=== PATIENT | male | born 1990 | race Caucasian/White ===

== ENCOUNTER → 2019-07-17 15:15 | Outpatient (CLI) | payer SELFPAY ==
--- NOTE | 2019-07-17 | TISS_PTH ---
PATIENT: LINCOLN ZUNIGA LOC: [facility] U#:[id number] AGE/SX: 34/M ROOM: RE07/17/[address]: Dr. Kalpesh Allen MD : 1990 BED: DIS: SPEC #: [id number] RECD: 07/17/19 15:01 STATUS: ARGENTINA SALBADOR #: [id number] CON: 07/17/19 00:[address]: Kalpesh Allen DEPT: SURGICAL PATHOLOGY RECD BY: Aaron Nice ENTERED: 07/20/19 08:34 SP TYPE: Tissue Bx GONZALO DR: Dr. 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 Negative for malignancy. SJ:marcial 07/21/19 COMMENT Case has been reviewed in consultation with Dr. Whitt who concurs with the above diagnosis. IDC:AM MICROSCOPIC DESCRIPTION Slides are reviewed. GROSS DESCRIPTION Received in fixative is one container labeled with the patient's name and designated neoplasm of pharynx. The specimen consists of a piece of de paz, indurated tissue measuring 0.9 x 0.5 x 0.3 cm. The specimen is bisected and submitted entirely in one cassette. / POONAM:marcial 07/20/19 TC:5 CPT: 09269
== END ==
PROVIDERS: PCP Family Medicine; Referring Provider Otolaryngology; Visit Provider Otolaryngology
DX: D49.0 Neoplasm of unspecified behavior of digestive system (principal)
CPT/HCPCS: 88305